=== PATIENT | male | born 1950 | race Caucasian/White ===

== ENCOUNTER 2018-09-07 13:51 | Emergency (ER) | payer OTHER, MEDICARE ==
[2018-09-07] MEDS ORDERED: ACETAMINOPHEN 325 MG TABLET PO ONE (16:00)
[2018-09-07] MEDS ORDERED: DEXAMETHASONE 4 MG TABLET PO ONE (16:00)
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
[2018-09-07 17:56] VITALS: BP 145/87
== END 2018-09-07 18:07 | disposition home or self-care (01) ==
LOC: ER 13:51
DX: M50.10 Cervical disc disorder with radiculopathy, unspecified cervical region (principal); M54.6 Pain in thoracic spine; M54.9 Dorsalgia, unspecified; V87.7XXA Person injured in collision between other specified motor vehicles (traffic), initial encounter; I25.10 Atherosclerotic heart disease of native coronary artery without angina pectoris; I10 Essential (primary) hypertension
CPT/HCPCS: 72070; 72125; 99284

== ENCOUNTER 2019-02-15 09:23 | Day surgery (SDC) | payer MEDICARE ==
[~2019-02-15 09:23] MED LIST: PROPOFOL INJ 200 MG/20 ML VIAL IV ONE
[2019-02-15 12:33] VITALS: BP 131/67
--- NOTE | 2019-02-15 15:20 | Operative Report ---
Operative Report DATE OF SURGERY: 02/15/19 Operative Report: The risks benefits and alternatives of the procedure explained to the patient in detail and informed consent is obtained.A GIF Olympus video scope was inserted into the patient's mouth and hypopharynx ,the esophagus is identified intubated and insufflated, the scope was then advanced through the esophagus stomach and duodenum, retroflexion maneuver is done, the esophagus stomach and first and second portions of the duodenum examined. PREOPERATIVE DIAGNOSIS: Gastroesophageal reflux disease POSTOPERATIVE DIAGNOSIS: Esophagitis versus Tracy's status post biopsy. Gastritis status post biopsy OPERATION: EGD with biopsy SURGEON: DAVIDSON COELHO ANESTHESIA: LMAC TISSUE REMOVED OR ALTERED: As noted above. COMPLICATIONS: None. ESTIMATED BLOOD LOSS: None. INTRAOPERATIVE FINDINGS: As noted above. PROCEDURE: Patient tolerated the procedure well. No immediate postprocedure complications are noted. Patient is discharged in good condition. Discharge date 02/15/2019. Discharge diet: Regular. Discharge activity: Regular. 2 to 3-week follow-up to discuss findings. Patient is instructed to call the office or proceed to the emergency room should there be any further problems or questions. If biopsies are positive for Tracy's esophagus he may require radiofrequency ablation
== END 2019-02-15 12:33 | disposition home or self-care (01) ==
LOC: END 09:23
PROVIDERS: ATTEND Internal Medicine Gastroenterology
DX: K21.0 Gastro-esophageal reflux disease with esophagitis (principal); K29.50 Unspecified chronic gastritis without bleeding; Z87.891 Personal history of nicotine dependence; I10 Essential (primary) hypertension; I25.2 Old myocardial infarction; E66.9 Obesity, unspecified; Z68.41 Body mass index [BMI] 40.0-44.9, adult; Z85.828 Personal history of other malignant neoplasm of skin
CPT/HCPCS: 43239; 88342 ×2; 88305 ×2; J2704; 731

== ENCOUNTER 2019-03-08 10:08 | Day surgery (SDC) | payer MEDICARE ==
[2019-03-08 11:32] VITALS: BP 125/79
--- NOTE | 2019-03-08 11:42 | Operative Report ---
Operative Report DATE OF SURGERY: 03/08/19 Operative Report: The risks benefits and alternatives of the procedure explained to the patient in detail and informed consent is obtained.A GIF Olympus video scope was inserted into the patient's mouth and hypopharynx, the esophagus is identified intubated and insufflated ,the scope was then advanced through the esophagus stomach and duodenum, retroflexion maneuver is done ,the esophagus stomach and first and second portions of the duodenum examined. PREOPERATIVE DIAGNOSIS: History of Tracy's esophagus POSTOPERATIVE DIAGNOSIS: Tracy's esophagus status post radiofrequency ablation OPERATION: EGD with radiofrequency ablation SURGEON: DAVIDSON COELHO ANESTHESIA: LMAC TISSUE REMOVED OR ALTERED: None. COMPLICATIONS: None. ESTIMATED BLOOD LOSS: As noted above. INTRAOPERATIVE FINDINGS: As noted above. PROCEDURE: Patient tolerated the procedure well. No immediate postprocedure complications are noted. Patient is discharged in good condition. Discharge date 03/08/2019. Discharge diet: Regular. Discharge activity: Regular. 2 to 3-week follow-up to discuss findings. Patient is instructed to call the office or proceed to the emergency room should there be any further problems or questions.
== END 2019-03-08 11:44 | disposition home or self-care (01) ==
LOC: END 10:08
PROVIDERS: ATTEND Internal Medicine Gastroenterology
DX: K22.719 Barrett's esophagus with dysplasia, unspecified (principal); E78.5 Hyperlipidemia, unspecified; I10 Essential (primary) hypertension; K21.9 Gastro-esophageal reflux disease without esophagitis; Z79.82 Long term (current) use of aspirin; Z79.899 Other long term (current) drug therapy
CPT/HCPCS: 43270; J2704